=== PATIENT | female | born 1960 | race Caucasian/White ===

== ENCOUNTER 2021-12-23 11:05 | Outpatient (CLI) | payer OTHER, SELFPAY ==
--- NOTE | ~2021-12-23 | XR_ITS ---
EXAMINATION: XR lumbar spine 2-3V DATE: 12/23/2021 11:26 INDICATION: Low back pain TECHNIQUE: Anteroposterior and lateral views of the lumbar spine, and cone-down lateral view of the l umbosacral junction were obtained. COMPARISON: None. FINDINGS: There are 23 degrees of lumbar levoscoliosis. There are 4 mm of anterolisthesis of L4 on L5 . Bone alignment is otherwise normal. There is no fracture. There is severe asymmetric loss of interv ertebral disc space height at L2-3 and L3-4 and relatively uniform loss of disc space height at L4-5 and L5-S1. The vertebral body heights are maintained. There is severe facet osteoarthritis of the low er lumbar spine. Surgical clips in the right upper quadrant are likely from prior cholecystectomy. IMPRESSION: 1. Severe lumbar spondylosis without acute findings. Reviewed, dictated and finalized at location A.
== END 2021-12-23 11:06 | disposition home or self-care (01) ==
PROVIDERS: PCP Family Medicine; Visit Provider Physician Assistant
DX: M54.41 Lumbago with sciatica, right side (principal); G89.29 Other chronic pain; M47.896 Other spondylosis, lumbar region
CPT/HCPCS: 72100

== ENCOUNTER 2022-04-14 14:30 | Outpatient (RCR) | payer OTHER, SELFPAY ==
--- NOTE | 2022-03-17 16:01 | PTOPEVAL1 ---
Assessment and note entered by Karrie Skinner, PT, DPT Evaluation Information Assessment Status Evaluation Diagnosis low back and R sided sciatic pain Onset 1 year Subjective Information Pt states her back pain started when she was 12 y/ o she states she fell and landed sitting on concrete. She states throughout her life she has tried chiropractic but never therapy. She states she is limited to walking for 10 mins. Pt rates her current pain as a 1/10 and a 10/10 at its worse stating it hurts bad enough I have to sit . Reported Pain Level Pain Score 1: Self Report Assessment PT Clinical Summary Rody presents to therapy today for her initial evaluation with a diagnosis of chronic low back pain and R sided sciatica. Today she demonstrates functional trunk motion with a majority of the motion coming from her hips. She demonstrates tenderness to palpation at her karla piriformis, karla ITB, and karla sacral border. She demonstrates pelvic asymmetries in both standing and in supine. She has BLE ROM that is WNL. He strength is functional but decreased from expected. Skilled physial therapy services are indicated to address pelvic malalignment, pain, and other deficits noted above. Therapy will help to manage pain and to promote improved functional mobility. Plan of Care Interventions Electrical Stimulation,Gait Training,Hot Pack/Cold Pack,Manual Therapy,Neuro Re-education,Patient/ Caregiver Educati,Therapeutic Activities, Therapeutic Exercise PT Services Indicated Yes Treatment Frequency and 2x/wk for 4 wks Duration These treatments will address the objective and functional deficits as defined above. The patient will be advanced safely and appropriately in order for the patient to progress towards his/her prior level of function. Additional exercises will be introduced and as well as a comprehensive home exercise program upon discharge, if needed, ?to ensure carryover of functional gains achieved in the clinic. This treatment plan has been reviewed and agreement upon by the patient.
--- NOTE | 2022-04-14 15:04 | PTOPDC ---
Assessment and note entered by Karrie Skinner, PT, DPT Evaluation Information Assessment Status Progress Diagnosis low back and R sided sciatic pain Onset 1 year Subjective Information Pt states she is really sore today. She states it feels like she is being shot in the buttock. She reports radiating pain down the back side of her R leg, into her knee. She states therapy has helped her a lot however she knows there are other things going on. She states she has sciatic nerve pain and arthritis and is not sure how therapy will help this. Pt reports a 50% improvement in her overall symptoms. She states she can stand for no longer than 5-10 mins before she gets an increase in back pain. During all subjective questions with is sitting with her knees crossed with a lateral weight shift . Pt reports good compliance with her HEP and states she feels good after these. Reported Pain Level Pain Score 8: Self Report Assessment PT Clinical Summary Rody presents to therapy today for her progress report following 7 visits of skilled therapy to treat her low back pain. Today she demonstrates mild strength improvements and reports 50% improvement in her overall symptoms. Pt states she is going a different route for pain management and does not want to continue therapy at this time . She was instructed to continue her HEP. She will be discharged at this time. Plan of Care Interventions Electrical Stimulation,Gait Training,Hot Pack/Cold Pack,Manual Therapy,Neuro Re-education,Patient/ Caregiver Educati,Therapeutic Activities, Therapeutic Exercise PT Services Indicated Yes Treatment Frequency and to be discharged Duration
== END 2022-04-14 15:31 | disposition home or self-care (01) ==
LOC: ANHGOSHPT 14:30
PROVIDERS: PCP Family Medicine; Visit Provider Family Medicine
DX: M54.41 Lumbago with sciatica, right side (principal); G89.29 Other chronic pain
CPT/HCPCS: 97110; 97112; 97140; 97161; 97530

== ENCOUNTER → 2022-06-18 13:59 | Outpatient (CLI) | payer OTHER, SELFPAY ==
--- NOTE | ~2022-06-18 | MR_ITS ---
EXAMINATION: MR lumbar spine wo con DATE: 06/18/2022 14:35 INDICATION: Low back pain. TECHNIQUE: Magnetic resonance imaging (MRI) of the lumbar spine was performed without intravenous con trast. Sequences included sagittal T2-weighted FSE, sagittal T2-weighted FS FSE, sagittal T1-weighted FSE, and axial T2-weighted FSE. COMPARISON: Lumbar spine radiographs 12/23/2021 FINDINGS: There is 22 degrees dextroscoliosis of lumbar spine. There is 3 mm retrolisthesis of L2 on L3. There is mild chronic anterior wedging of T12 vertebral body. There is severely decreased disc he ight at T12-L1 and L2-L3, moderately decreased disc height at L3-L4 and L4-L5, and severely decreased disc height at L5-S1 with endplate remodeling. The conus medullaris is at L2. The following disc lev els are specifically discussed: T12-L1: The disc is bulging and has an annular fissure. There is severe right and mild left facet guzman nt osteoarthritis. There is mild bilateral neural foraminal stenosis. There is mild central canal isreal nosis. L1-L2: There is a central protrusion. There is mild right and severe left facet joint osteoarthritis. There is mild left neural foraminal stenosis. There is mild central canal stenosis. L2-L3: The disc is bulging and has an annular fissure. There is mild right and moderate left facet april int osteoarthritis. There is mild bilateral neural foraminal stenosis. There is mild central canal st enosis. L3-L4: The disc is bulging. There is mild bilateral facet joint osteoarthritis. There is mild bilater al neural foraminal stenosis. There is mild central canal stenosis. L4-L5: The disc is bulging and has an annular fissure. There is severe bilateral facet joint osteoart hritis. There is mild bilateral neural foraminal stenosis. There is mild central canal stenosis. L5-S1: The disc is bulging and has an annular fissure. There is severe right and mild left facet join t osteoarthritis. There is mild bilateral neural foraminal stenosis. There is mild central canal sten osis. IMPRESSION: 1. Severe lumbar spondylosis. 2. Lumbar dextroscoliosis. Reviewed, dictated and finalized at location A.
== END ==
PROVIDERS: PCP Family Medicine; Visit Provider Nurse Practitioner Adult Health
DX: M47.896 Other spondylosis, lumbar region (principal)
CPT/HCPCS: 72148

== ENCOUNTER → 2022-06-19 14:23 | Outpatient (CLI) | payer OTHER, SELFPAY ==
--- NOTE | ~2022-06-19 | XR_ITS ---
XR lumbar spine min 4V DATE: 06/19/2022 14:39 INDICATION: Lumbago, sciatica TECHNIQUE: Standing AP, lateral, coned lateral lumbosacral and flexion and extension lateral views COMPARISON: 12/23/2021 lumbar spine 06/18/2022 MRI lumbar spine FINDINGS: There is approximately 31 degrees rotatory dextroscoliosis of the lumbar spine measured fro m L1 to L4. This is increased from 23 degrees on 12/23/2021 There is diffuse osteopenia. There is moderately severe to severe degenerative disease of the lumbar and lumbosacral spine. Stable minimal grade 1 anterolisthesis at L4-5. Is prominent degenerative change at the apophyseal april ints. No fracture or bone destruction is detected. The sacroiliac joints are intact. Status post cholecystectomy. IMPRESSION: Increased rotatory dextroscoliosis, measuring up to 31 degrees, increased from 23 degrees since 12/23/2021 Moderately severe to severe degenerative disc disease Prominent degenerative changes apophyseal joints, with associated grade 1 anterolisthesis at L4-5, st able Reviewed, dictated and finalized at location A. IMPRESSION: Increased rotatory dextroscoliosis, measuring up to 31 degrees, inc reased from 23 degrees since 12/23/2021 Moderately severe to severe degenerative disc disease Prominent degenerative changes apophyseal joints, with associated grade 1 anter olisthesis at L4-5, stable
== END ==
PROVIDERS: PCP Family Medicine; Visit Provider Neurological Surgery
DX: M54.40 Lumbago with sciatica, unspecified side (principal); M51.36 Other intervertebral disc degeneration, lumbar region
CPT/HCPCS: 72110

== ENCOUNTER 2024-02-09 12:42 | Outpatient (CLI) | payer OTHER, SELFPAY ==
--- NOTE | ~2024-02-09 | CT_ITS ---
EXAMINATION: CT thoracic lumbar wo con DATE: 02/09/2024 13:09 INDICATION: Mid back pain. Cervical disc disorder with myelopathy. TECHNIQUE: Computed tomography (CT) of the thoracic and lumbar spine was performed without intravenou s contrast. Automated exposure control and iterative reconstruction technique were employed. The dose -length product was 489.59 mGy-cm. COMPARISON: Lumbar spine MRI 06/18/2022 FINDINGS: CT THORACIC SPINE: There is 18 degrees levoscoliosis of thoracolumbar spine. There are changes of ant erior fusion procedure from C5 to C7 with interbody devices and anterior plate and screws. There is m ild chronic anterior wedging of T6-T8 vertebral bodies. There is mildly decreased disc height at mult iple levels. There is moderately decreased disc height at T5-T6, severely decreased disc height at T6 -T7 and T7-T8, moderately decreased disc height at T8-T9, and severely decreased disc height at T9-T1 0 and T12-L1. There is multilevel severe facet joint osteoarthritis. There is mild neural foraminal s tenosis at multiple levels on either side. There is mild central canal stenosis from T5-T6 through T1 2-L1. CT LUMBAR SPINE: There is 32 degrees dextroscoliosis of lumbar spine. Vertebral body heights are norm al. There is mildly decreased disc height at L1-L2, severely decreased disc at L2-L3 and L3-L4, moder ately decreased disc height at L4-L5, and severely decreased disc height at L5-S1. The following disc levels are specifically discussed: L1-L2: The disc is bulging. There is moderate right and severe left facet joint osteoarthritis. There is no neural foraminal stenosis. There is mild central canal stenosis. L2-L3: The disc is bulging. There is severe bilateral facet joint osteoarthritis. There is mild bilat eral neural foraminal stenosis. There is mild central canal stenosis. L3-L4: The disc is bulging. There is severe right and moderate left facet joint osteoarthritis. There is mild bilateral neural foraminal stenosis. There is mild central canal stenosis. L4-L5: The disc is bulging. There is severe bilateral facet joint osteoarthritis. There is mild bilat eral neural foraminal stenosis. There is mild central canal stenosis. L5-S1: The disc is bulging. There is severe right and moderate left facet joint osteoarthritis. There is mild bilateral neural foraminal stenosis. There is mild central canal stenosis. IMPRESSION: 1. Severe thoracic and lumbar spondylosis. 2. Scoliosis. Reviewed, dictated and finalized at location A. T MANAGER
== END 2024-02-09 12:43 | disposition home or self-care (01) ==
PROVIDERS: PCP Family Medicine
DX: M43.04 Spondylolysis, thoracic region (principal); M43.06 Spondylolysis, lumbar region; M41.85 Other forms of scoliosis, thoracolumbar region
CPT/HCPCS: 72128; 72131

== ENCOUNTER 2024-12-07 11:30 | Outpatient (CLI) | payer OTHER, SELFPAY ==
[2024-12-07 17:19] LABS: Hematocrit 35.1 % (37.0-47.0); Hemoglobin 10.7 g/dL (12.0-15.0); Immature Granulocyte Percent A 0.3 % (0-0.5); Lymphocytes Absolute Auto 2.08 K/mm3 (0.9-3.2); Mean Corpuscular HGB Conc 30.5 g/dl (32-36); Mean Corpuscular Hemoglobin 28.5 pg (26-34); Mean Corpuscular Volume 93.6 fl (80-100); Nucleated Red Blood Cells Absolute Auto 0.000 K/mm3 (0.0-0.012); Nucleated Red Blood Cells Perc 0.0 % (0.0-0.2); Platelet Count Result 466 k/mm3 (150-375); Red Blood Count 3.75 M/mm3 (4.2-5.4); White Blood Count 7.1 K/mm3 (4.5-10.0)
[2024-12-07 17:21] LABS: Alanine Aminotransferase 14 U/L (6-35); Albumin Level 3.2 g/dL (3.5-5.1); Alkaline Phosphatase 205 U/L (38-126); Anion Gap 6 mmol/L (4-12); Aspartate Amino Transferase 29 U/L (14-36); Bilirubin,Total 0.2 mg/dL (0.2-1.3); Blood Urea Nitrogen 12 mg/dL (7-17); Calcium 8.4 mg/dL (8.4-10.2); Carbon Dioxide 25 mmol/L (22-30); Chloride 106 mmol/L (98-107); Estimated Glomerular Filt Rate > 60; Glucose 93 mg/dL (65-110); Potassium 4.2 mmol/L (3.4-5.0); Sodium 137 mmol/L (137-145); Total Protein 6.3 g/dL (6.3-8.2)
== END 2024-12-07 11:31 | disposition home or self-care (01) ==
LOC: ANHGOSHLAB 11:31
PROVIDERS: PCP Family Medicine; Visit Provider Family Medicine
DX: I10 Essential (primary) hypertension (principal); F17.210 Nicotine dependence, cigarettes, uncomplicated
CPT/HCPCS: 36415; 80053; 85025